=== PATIENT | female | born 1960 ===

== ENCOUNTER 2024-04-17 05:30 | Day surgery (SDC) | payer OTHER ==
[~2024-04-17 05:30] MED LIST: SYNTHROID100 MCG PO; ZOCOR20 MG PO
[2024-04-17] MEDS ORDERED: TRAM1TAB98 PO (09:43)
[2024-04-17] MEDS ORDERED: MACROBID 100 M100 MG PO (09:43)
[2024-04-17] MEDS ORDERED: GENTAMICIN SULFATE 40 MG/ML VIAL IR ONE (10:00)
[2024-04-17] MEDS ORDERED: CEFAZOLIN SODIUM 1,000 MG VIAL IV ONE (10:00)
== END 2024-04-17 15:00 | disposition home or self-care (01) ==
LOC: CIR.AMB 05:30
PROVIDERS: ATTEND Obstetrics & Gynecology Gynecology
DX: N81.11 Cystocele, midline (principal)